=== PATIENT | male | born 1965 | race Caucasian/White ===

== ENCOUNTER 2016-05-13 03:02 | Emergency (ER) | payer OTHER ==
[~2016-05-13] VITALS: Ht 177.8 cm; Wt 90.9 kg
[~2016-05-13 03:02] MED LIST: HYDR-579 PO; TAMS0.4C98 PO; TROS20TA4 PO
[2016-05-13 03:05] VITALS: BP 129/85; PULSE 85; RESP 16; O2SAT 98
--- NOTE | 2016-05-13 03:13 | ED.REPORT ---
HPI-Chest Pain 40 and Over Date of Service May 13, 2016 ED Provider: Norman Cope MD Patient is a 50 year old male who presents to the ED after he developed left sided rib pain 12 hours ago. The patient states that the pain started as a cramping twitch, which increased in severity after onset. His pain soon became stabbing in character and prevented him from falling asleep last night. Patient reports increased pain with deep breath and laying down. He denies recent trauma or injury to his chest. Patient denies shortness of breath, cough, diaphoresis, abdominal pain, nausea, or vomiting. He denies having acid reflux or changes to his bowel habits. Patient is a nonsmoker and he does not drink alcohol. He denies a strong family history of heart disease. Nursing Notes Stated Complaint: SHARP STABBING PAIN LT SIDE RIBS Chief Complaint: Chest Pain-Non Cardiac Nature Nursing Notes Reviewed: Yes Allergies: Coded Allergies: No Known Allergies (Verified Allergy, Unknown, 01/16/15) Scheduled Omeprazole (Omeprazole) 20 Mg Tablet.dr 20 MG PO BID Tamsulosin (Flomax) 0.4 Mg Capsule 0.4 MG PO DAILY Trospium Chloride (Trospium Chloride) 20 Mg Tablet 20 MG PO DAILY Scheduled PRN Hydrocodone/Acetaminophen ([place] 10-325 Tablet) 1 Each Tablet 0.5-1 EACH PO BID PRN PRN PRN Naproxen (Naprosyn) 500 Mg Tablet 500 MG PO BID PRN PRN For Pain General Time Seen by MD: 03:15 Chief Complaint Chest pain (rib pain) Hx Obtained From: Patient Arrived By: Walk-in Sudden in Onset?: No Onset Occurred: 9 - 12 hours ago Symptom Duration: Since onset Location: : Chest left Quality: Painful, Pleuritic Severity: Current: Moderate Severity: Maximum: Severe Recent Healthcare: No recent doctor visit, No recent hospitalization Similar Sx Previous: No Past Medical History Past Medical History chronic back pain BPH Past Surgical History umbilical hernia repair hemorrhoidectomy lipoma removal - neck Reports: Tonsillectomy Reports: Back/neck surgery Smoking History Never Smoker Social History Other Social History: Good social support, , Local resident Ambulatory Status Independent Review of Systems Respiratory: Reports: Pleuritic pain, Denies: Non-productive cough, Shortness of breath Cardiovascular: Reports: Chest pain, Denies: Dyspnea on exertion GI: Denies: Abdominal pain, Constipation, Diarrhea, Nausea, Vomiting Skin: Denies Diaphoresis Complete sys rev & neg: except as marked. Physical Exam Initial Vital Signs Vital Signs (First) Date Time Temp Pulse Resp B/P Pulse Ox O2 Delivery O2 Flow Rate FiO2 05/13/16 03:05 37.1 85 16 129/85 98 Room Air Initial VS: Reviewed Head / Eyes: Atraumatic, Normocephalic, PERRL ENT: Mucous membranes moist, Conjunctiva normal, No scleral icterus Neck: Supple, Full range of motion Skin: Warm, Dry, No cyanosis Neurologic: Alert, Oriented, Nonfocal Psychiatric: Mood/affect normal, Behavior normal, Normal thought content General/Constitutional: Awake, Alert, No acute distress, Well hydrated Respiratory / Chest: Breath sounds NL, Breath sounds = bilat, No respiratory distress, No rales, No rhonchi, No wheezing no pleuritic rub tender around the left 7th rib, anteriorly, at the costochondral margin Cardiovascular: Heart rate NL, Regular rhythm, Heart sounds NL, No gallop, No murmurs, No rubs Abdomen: Soft, Non-tender, No guarding, No rebound Lower Extremity / Pelvis / MS: No swelling, No edema Upper Extremity / MS: No swelling, No edema Interpretation & Diagnostics Lab Results Interpretation Result Diagram: 05/13/16 0358 05/13/16 0358 Test 05/13/16 03:58 05/13/16 04:30 White Blood Count 8.3th/mm3 (3.8-10.1) Red Blood Count 4.99mil/mm3 (4.40-5.80) Hemoglobin 14.8g/dL (13.8-17.2) Hematocrit 41.6% (41.0-50.0) Mean Corpuscular Volume 83.4fL (81-100) Mean Corpuscular Hemoglobin 29.7pg (27.0-35.0) Mean Corpuscular Hemoglobin Concent 35.6% (32.0-37.0) Red Cell Distribution Width 13.1% (12.3-15.4) Platelet Count 264bil/L (150-400) Neutrophils (%) (Auto) 61.9% (40-74) Lymphocytes (%) (Auto) 28.3% (14-46) Monocytes (%) (Auto) 7.4% (4-12) Eosinophils (%) (Auto) 1.7% (0-5) Basophils (%) (Auto) 0.6% (0-3) Erythrocyte Sedimentation Rate 6mm/hr (0-30) Prothrombin Time 10.1sec (8.1-12.5) Prothromb Time International Ratio 0.95ratio Activated Partial Thromboplast Time 27.5sec (22.8-33.0) D-Dimer < 0.5mg/L (<0.50) Sodium Level 138mEq/L (134-144) Potassium Level 4.1mEq/L (3.5-5.2) Chloride Level 99mEq/L (97-108) Carbon Dioxide Level 23mmol/L (18-29) Blood Urea Nitrogen 15mg/dL (6-24) Creatinine 0.90mg/dL (0.76-1.27) Estimat Glomerular Filtration Rate 95mL/min (>59) Glucose Level 102mg/dL (60-99) Calcium Level 9.2mg/dL (8.5-10.1) Magnesium Level 2.1mg/dL (1.6-2.6) Total Bilirubin 1.2mg/dL (0.0-1.2) Aspartate Amino Transf (AST/SGOT) 28U/L (0-50) Alanine Aminotransferase (ALT/SGPT) 29U/L (0-44) Alkaline Phosphatase 66U/L (25-150) Troponin T 0.010ug/L (0.0-0.011) Pro-B-Type Natriuretic Peptide 5.00pg/mL (0-121) Total Protein 7.1g/dL (6.4-8.4) Albumin 4.8g/dL (3.4-5.0) Hold Urine Received (Received) ECG Interpretation Time: 03:31 Interpreted by: ED physician Normal ECG Interpretation: Normal ECG w/ rate of... (75), No acute ischemic changes, No change from prior ECGs (08/24/2014) X-Ray Chest Interpretation Chest Xray Interpretation: Impression: No acute disease. View: AP & lat Interpretation / Wet Read by: Wet read ED physician Re-Eval/Medical Decision Med Decision/Clinical Course 50-year-old with sharp elicitable and reproducible left-sided chest pain. He is low risk for cardiac disease. He has a negative d-dimer. It is a normal EKG and normal chest x-ray. His pain reproduces exactly with palpation over his costochondral junction at about the seventh rib. He is discharged now in stable condition with Naprosyn to supplement his current Vicodin. Omeprazole as long as he is on Naprosyn. Follow up with PCP. Source of Hx: Old records Time of Eval: 05:00 Patient Status: Condition improved Re-Evaluation/Progress Note: Rechecked the patient to discuss the results of his labs, EKG, and chest x-ray. Patient understands and agrees with the plan to be discharged home. Discharge instructions and follow-up discussed. All questions were addressed. Return to the ED warnings given. Counseled Regarding: Diagnosis, Lab results, Need for follow-up, When/why to return to ED Discharge & Departure Primary Impression: Chest wall pain Disposition: Home Discharge Condition All VS Reviewed: Yes Condition: Stable Patient Instructions: Costochondritis (ED) Additional Instructions: Your cardiogram is normal. Your clot study is negative. All of your labs are unremarkable. There is no evidence of significant inflammation. Begin Naprosyn twice daily. Omeprazole daily as long as you are taking Naprosyn. Follow-up with your doctor in the office. Continue your current meds otherwise. Return if any immediate issues. Referrals: Watson Rea MD (PCP) Scribe Attestation Portions of this note were transcribed by Rose Dennis. I, Dr. Cope personally performed the history, physical exam and medical decision-making; I reviewed and confirmed the accuracy of the information in the transcribed note. Signed by: Alayna Mandujano, 05/13/2016 2135 copies to: Watson Rea MD, Christopher W MD May 13, 2016 03:13 Rose Dennis May 13, 2016 03:23
[2016-05-13] MEDS ORDERED: Pantoprazole 4 mg/mL 10 mL Inj IVPUSH ONE (03:25)
[2016-05-13 04:10] LABS: BASOPHILS % (AUTO) 0.6 % (0-3); EOSINOPHILS % (AUTO) 1.7 % (0-5); MONOCYTES % (AUTO) 7.4 % (4-12); Mean Corpuscular Hemoglobin 29.7 pg (27.0-35.0); Mean Corpuscular Volume 83.4 fL (81-100); NEUTROPHILS % (AUTO) 61.9 % (40-74); Platelet Count 264 bil/L (150-400)
[2016-05-13] MEDS ORDERED: HYDROcodone-APAP 10-325 mg PO ONE (04:20)
[2016-05-13 04:23] VITALS: BP 132/88; PULSE 88; RESP 14; O2SAT 99
[2016-05-13 04:30] LABS: D-DIMER < 0.5 mg/L (<0.50); INR 0.95 ratio
[2016-05-13 04:41] LABS: TROPONIN T 0.01 ug/L (0.0-0.011)
[2016-05-13 04:45] LABS: Magnesium 2.1 mg/dL (1.6-2.6)
[2016-05-13] MEDS ORDERED: NAPR500T PO (04:57)
[2016-05-13] MEDS ORDERED: OMEP20TA86 PO (04:57)
[2016-05-13 05:20] VITALS: BP 138/82; PULSE 86; RESP 16; O2SAT 98
--- NOTE | 2016-05-13 09:35 | DRSVH ---
PROCEDURE: X-RAY CHEST, TWO VIEWS ([id number]) INDICATIONS: CHEST PAIN pleuritic TECHNIQUE: 2 views of the chest were acquired. COMPARISON: None. FINDINGS: Surgical changes and devices: None. Lungs and pleura: No pleural effusions or pneumothorax. Lungs are clear. Mediastinum: Mediastinal contours are normal. Heart size is normal. Bones and chest wall: No suspicious bony abnormalities. Soft tissues appear unremarkable. IMPRESSION: No acute cardiopulmonary disease. Dictated by: Braden Hu Luico Interpreted: Saima Davidson MD on 05/13/2016 at 9:35 Transcribed by: BRODY on 05/13/2016 at 9:35 Approved by: Saima Davidson M.D. on 05/13/2016 at 16:11
== END 2016-05-13 04:58 | disposition home or self-care (01) ==
LOC: SED 03:02
DX: R07.89 Other chest pain (principal); G89.29 Other chronic pain; Z98.890 Other specified postprocedural states